=== PATIENT | male | born 1990 | race Caucasian/White ===

== ENCOUNTER 2020-03-02 17:07 | Emergency (ER) | payer BC ==
[~2020-03-02] VITALS: Ht 175.3 cm; Wt 128.4 kg
--- NOTE | 2020-03-02 18:06 | PHYS DOC ---
Past History Past Medical History: Other Additional Past Medical Histor: PE's (MAYTE BURGER APRN) Past Surgical History: Other Additional Past Surgical Histo: IVF filters (MAYTE BURGER APRN) Alcohol Use: None (MAYTE BURGER APRN) Adult General Chief Complaint Chief Complaint: SHORTNESS OF BREATH HPI HPI Patient is a 30-year-old male patient with history of PE was, who presents to the ED today complaining of shortness of breath and 8 out of 10 substernal chest pain that began a couple minutes ago prior to coming to the ED. Patient denies any fever or coughing. Denies anything specifically relieving the pain but states exertion exacerbates the pain to his chest. He states he called ask a nurse who told him to come to the ED to be tested for COVID-19. He is currently on Xarelto and not that concerned about PE (MAYTE BURGER APRN) Review of Systems Review of Systems Constitutional: Denies fever or chills [] Eyes: Denies change in visual acuity, redness, or eye pain [] HENT: Denies nasal congestion or sore throat [] Respiratory: Denies cough or shortness of breath [] Cardiovascular: Reports chest pain. No additional information not addressed in HPI [] GI: Denies abdominal pain, nausea, vomiting, bloody stools or diarrhea [] : Denies dysuria or hematuria [] Musculoskeletal: Denies back pain or joint pain [] Integument: Denies rash or skin lesions [] Neurologic: Denies headache, focal weakness or sensory changes [] All other systems were reviewed and found to be within normal limits, except as documented in this note. (MAYTE BURGER APRN) Current Medications Current Medications Current Medications Medications (Trade) Dose Ordered Sig/Thad Start Time Stop Time Status Last Admin Dose Admin Morphine Sulfate (Morphine 4mg Syringe) 4 mg PRN Q15MIN PRN 03/02/20 18:00 03/03/20 17:59 UNV (MAYTE BURGER APRN) Allergies Allergies Allergies Coded Allergies Type Severity Reaction Last Updated Verified amoxicillin Allergy Unknown 03/02/20 Yes (MAYTE BURGER APRN) Physical Exam Physical Exam Constitutional: Well developed, well nourished, no acute distress, non-toxic appearance. [] HENT: Normocephalic, atraumatic, bilateral external ears normal, oropharynx moist, no oral exudates, nose normal. [] Eyes: PERRLA, EOMI, conjunctiva normal, no discharge. [] Neck: Normal range of motion, no tenderness, supple, no stridor. [] Cardiovascular: Tachycardic, Lungs & Thorax: Bilateral breath sounds clear to auscultation [] Abdomen: Bowel sounds normal, soft, no tenderness, no masses, no pulsatile masses. [] Skin: Warm, dry, no erythema, no rash. [] Back: No tenderness, no CVA tenderness. [] Extremities: No tenderness, no cyanosis, no clubbing, ROM intact, no edema. [] Neurologic: Alert and oriented X 3, normal motor function, normal sensory fun ction, no focal deficits noted. [] Psychologic: Affect normal, judgement normal, mood normal. [] (MAYTE BURGER APRN) Current Patient Data Vital Signs Vital Signs Date Time Temp Pulse Resp B/P (MAP) Pulse Ox O2 Delivery O2 Flow Rate FiO2 03/02/20 17:43 99.2 114 16 137/84 (101) 99 Room Air (MAYTE BURGER APRN) EKG EKG [address] Carrera sinus tachycardia HR 105 no STEMI[] (MAYTE BURGER APRN) Radiology/Procedures Radiology/Procedures []PROCEDURE: CT ANGIOGRAPHY CHEST EXAM: CT Pulmonary Angiogram INDICATION: Reason: hx of PE, chest pain SOA Omni 350 100cc / Spl. Instructions: / History: TECHNIQUE: Multi-detector row images were acquired from the thoracic inlet through the upper abdomen with the use of IV contrast. Sagittal and coronal images were acquired from the transaxial data. MIP images of the pulmonary arteries were obtained. All CT scans performed at this facility utilize dose optimization techniques as appropriate to the exam, including the following: Automated exposure control and adjustment of the mA and/or KV according to patient size (this includes techniques or standardized protocols for targeted exams where dose is indication/reason for exam). IV CONTRAST: Administered COMPARISON: None FINDINGS: PULMONARY ARTERIES: No pulmonary emboli are identified. Suboptimal pulmonary artery opacification. CARDIOVASCULAR: Unremarkable Aorta is normal caliber. MEDIASTINUM & FLORINA: No adenopathy or masses. LUNGS: No pulmonary infiltrate, nodule, or other focal abnormality. PLEURAL SPACE: No pleural effusions or pneumothorax. 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 Multiple tortuous vessels in the right suprarenal fossa are present, with not well seen intrahepatic IVC. Patient may have variant anatomy of his systemic venous system. IMPRESSION: Suboptimal pulmonary arterial opacification showing no evidence of a pulmonary embolus. No secondary findings suggesting sequelae of pulmonary emboli are noted either. Electronically signed by: Sophie Hernández MD (03/02/2020 6:49 PM) [facility] [place] DICTATED AND SIGNED BY: SOPHIE HERNÁNDEZ MD DATE: 03/02/201848 CC: [facility]; SHALONDA MULLEN MD; MAYTE BURGER APRN ~ (MAYTE BURGER APRN) Heart Score HEART Score for Chest Pain: HEART Score for Chest Pain Response (Comments) Value History Slighlty/Non-Suspicious 0 ECG Normal 0 Age < 45 0 Risk Factors 1 or 2 Risk Factors 1 Troponin < Normal Limit 0 Total 1 Risk Factors: Risk Factors: DM, Current or recent (<one month) smoker, HTN, HLP, family history of CAD, obesity. Risk Scores: Risk Factors: DM, Current or recent (<one month) smoker, HTN, HLP, family history of CAD, obesity. (MAYTE BURGER APRN) Course & Med Decision Making Course & Med Decision Making Pertinent Labs and Imaging studies reviewed. (See chart for details) This is a 30-year-old male patient with a history of PEs presenting to the ED today complaining of chest pain and shortness of breath that began today. Patient reports being concerned about COVID-19 more than PE, he states is already on Xarelto. Vitals on arrival to the ED [id number], heart rate 114, on arrival currently 75, respiration 20 on room air, blood pressure 137/84, O2 sats 95% on room air. CBC, CMP, no acute findings. CT angio negative for any acute. Tested for Covid. Discharge to home. Return precautions provided. (MAYTE BURGER APRN) Course & Med Decision Making Agree with treatment plan. Results reviewed with patient. I was present in the ER and could answer any questions etc. (EDU CARRERA DO) Dragon Disclaimer Dragon Disclaimer This electronic medical record was generated, in whole or in part, using a voice recognition dictation system. (MAYTE BURGER APRN) Departure Departure: Impression: Primary Impression: Shortness of breath Additional Impressions: Chest pain Person under investigation for COVID-19 Disposition: 01 DC HOME SELF CARE/HOMELESS Condition: STABLE Referrals: SHALONDA MULLEN MD (PCP) follow up with your doctor in 1-2 weeks Patient Instructions: Chest Pain (Nonspecific), Shortness of Breath Additional Instructions: You were tested for COVID-19. We will call you in the next 3 to 5 days with results. In the meantime quarantine yourself. Maintain good hand hygiene, push fluids. Rest. Follow up with your doctor in 1 week. Come back to the ED if symptoms worsen. Problem Qualifiers Additional Impressions: Chest pain Chest pain type: unspecified Qualified Codes: R07.9 - Chest pain, unspecified MAYTE BURGER APRN Mar 02, 2020 18:06 EDU CARRERA DO Mar 02, 2020 20:44
--- NOTE | 2020-03-02 18:06 | EKG ---
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
[2020-03-02] MEDS: IOHEXOL 350 MG/ML 100 ML VIAL. IV ONE (18:15)
[2020-03-02] MEDS: MORPHINE SULFATE 4 MG/ML DISP.SYRIN. IV/SQ PRN (18:22)
[2020-03-02 18:50] LABS: BASO # 0.1 x10^3/uL (0.0-0.2); BASO % 1 % (0-3); EOS # 0.1 x10^3/uL (0.0-0.7); EOS % 2 % (0-3); HEMOGLOBIN 14.6 g/dL (13.0-17.5); LYMPH # 0.8 x10^3/uL (1.0-4.8); LYMPH % 13 % (24-48); MEAN CORPUSCULAR HEMOGLOBIN 29 pg (25-35); MEAN CORPUSCULAR HGB CONC 33 g/dL (31-37); MEAN CORPUSCULAR VOLUME 86 fL (79-100); MONO # 0.9 x10^3/uL (0.0-1.1); MONO % 15 % (0-9); NEUT # 4.4 x10^3uL (1.8-7.7); NEUT % 70 % (31-73); PLATELET COUNT 337 x10^3/uL (140-400); RED BLOOD COUNT 5.09 x10^6/uL (4.30-5.70); RED CELL DISTRIBUTION WIDTH 13.1 % (11.5-14.5); WHITE BLOOD COUNT 6.3 x10^3/uL (4.0-11.0)
[2020-03-02 18:51] LABS: CALCIUM 9.2 mg/dL (8.5-10.1); CREATININE 1.1 mg/dL (0.7-1.3); GFR 78.6; POTASSIUM 3.8 mmol/L (3.5-5.1)
--- NOTE | 2020-03-02 18:52 | RAD ---
EXAM: CT Pulmonary Angiogram INDICATION: Reason: hx of PE, chest pain SOA Omni 350 100cc / Spl. Instructions: / History: TECHNIQUE: Multi-detector row images were acquired from the thoracic inlet through the upper abdomen with the use of IV contrast. Sagittal and coronal images were acquired from the transaxial data. MIP images of the pulmonary arteries were obtained. All CT scans performed at this facility utilize dose optimization techniques as appropriate to the exam, including the following: Automated exposure control and adjustment of the mA and/or KV according to patient size (this includes techniques or standardized protocols for targeted exams where dose is indication/reason for exam). IV CONTRAST: Administered COMPARISON: None FINDINGS: PULMONARY ARTERIES: No pulmonary emboli are identified. Suboptimal pulmonary artery opacification. CARDIOVASCULAR: Unremarkable Aorta is normal caliber. MEDIASTINUM & FLORINA: No adenopathy or masses. LUNGS: No pulmonary infiltrate, nodule, or other focal abnormality. PLEURAL SPACE: No pleural effusions or pneumothorax. 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 Multiple tortuous vessels in the right suprarenal fossa are present, with not well seen intrahepatic IVC. Patient may have variant anatomy of his systemic venous system. IMPRESSION: Suboptimal pulmonary arterial opacification showing no evidence of a pulmonary embolus. No secondary findings suggesting sequelae of pulmonary emboli are noted either. Electronically signed by: Fadia Hernández MD (03/02/2020 6:49 PM) [facility]
[2020-03-02 18:59] LABS: BARBITURATES NEG (NEG); BENZODIAZEPINES NEG (NEG); CANNABINOIDS NEG (NEG); COCAINE NEG (NEG); METHADONE NEG (NEG); OPIATES NEG (NEG); PHENCYCLIDINE NEG (NEG)
[2020-03-02 19:01] LABS: AMPHETAMINE/METHAMPHETAMINE NEG (NEG)
[2020-03-02 19:04] LABS: ALBUMIN 3.8 g/dL (3.4-5.0); ALBUMIN/GLOBULIN RATIO 0.9 (1.0-1.7); MAGNESIUM 2.1 mg/dL (1.8-2.4); TOTAL BILIRUBIN 0.3 mg/dL (0.2-1.0); TOTAL PROTEIN 8.2 g/dL (6.4-8.2)
[2020-03-02 19:29] LABS: BILIRUBIN,URINE NEG (NEG); CLARITY,URINE CLEAR; COLOR,URINE YELLOW; GLUCOSE,URINE NEG (NEG); NITRITE,URINE NEG (NEG); RBC,URINE 0 /HPF (0-2); UROBILINOGEN,URINE 0.2 mg/dL (0.2 mg/dL)
[2020-03-02 19:30] LABS: BACTERIA,URINE 0 /HPF (0-FEW); WBC,URINE OCC /HPF (0-4)
[2020-03-02 19:42] VITALS: BP 127/81
== END 2020-03-02 19:44 | disposition home or self-care (01) ==
LOC: ER 17:07
DX: U07.1 COVID-19 (principal); R06.02 Shortness of breath; R07.2 Precordial pain; Z86.711 Personal history of pulmonary embolism; Z88.1 Allergy status to other antibiotic agents
CPT/HCPCS: 36415; 71275; 80053; 80307; 81001; 82553; 83735; 83880; 84484; 85025; 85610; 93005; 96374; 99285; C9803; J2270; Q9967; U0003